=== PATIENT | female | born 1970 | race Caucasian/White ===

== ENCOUNTER 2021-06-07 11:33 | Emergency (ER) | payer BC ==
[~2021-06-07] VITALS: Ht 167.6 cm; Wt 104.3 kg
[~2021-06-07 11:33] MED LIST: DOXYCYCLINE HY100 M2 PO; IBUPROFEN600 MG PO
[2021-06-07] MEDS ORDERED: SUDAFED 12 HOU120 MG PO (15:55)
== END 2021-06-07 16:13 | disposition home or self-care (01) ==
LOC: ER1 11:33
DX: U07.1 COVID-19 (principal); Z23 Encounter for immunization; I10 Essential (primary) hypertension; Z88.0 Allergy status to penicillin
CPT/HCPCS: 99283; M0245; U0002

== ENCOUNTER 2021-06-10 14:13 | Emergency (ER) | payer BC ==
[~2021-06-10 14:13] MED LIST changes: +SUDAFED 12 HOU120 MG PO
[2021-06-10 16:28] LABS: HEMOGLOBIN 14.2 gm/dl (12.3-15.3); RED BLOOD COUNT 4.58 M/UL (4.00-5.10); WHITE BLOOD COUNT 4.6 K/UL (4.5-11.0)
[2021-06-10 16:46] LABS: BUN/CREATININE RATIO 16 (0-10)
[2021-06-10] MEDS ORDERED: ZOFRAN 4 MG TAB4 MG PO (18:34)
[2021-06-10] MEDS ORDERED: MACROBID 100 M100 MG PO (20:38)
== END 2021-06-10 21:01 | disposition home or self-care (01) ==
LOC: ER1 14:13
PROVIDERS: Physician Assistant
DX: U07.1 COVID-19 (principal); N39.0 Urinary tract infection, site not specified; I10 Essential (primary) hypertension
CPT/HCPCS: 80048; 81001; 85025; 87077; 87086; 87186; 96374; 96375; 99284; J1885; J2405

== ENCOUNTER → 2022-02-09 | Outpatient (CLI) | payer BC ==
[~2022-02-09] MED LIST changes: +MACROBID 100 M100 MG PO; +ZOFRAN 4 MG TAB4 MG PO
== END ==
LOC: KOH-I 08:15
DX: M79.642 Pain in left hand (principal); M25.442 Effusion, left hand; M79.89 Other specified soft tissue disorders
CPT/HCPCS: 73218